=== PATIENT | female | born 1950 | race Caucasian/White ===

== ENCOUNTER → 2016-05-31 | Outpatient (CLI) | payer MEDICARE, BC ==
[~2016-05-31] MED LIST: ASPIRIN 81M81 MG/TA2 PO; BENADRYL25 M2 PO; CEPHALEXIN500 M1 PO; COZAAR 25MG25 MG/TAB PO; HCTZ12.5TAB PO; MULTIVITAMIN FO1 CAP PO; NORCO 325 MG-7.1 TAB PO; PEPCID 20MG TAB20 MG PO; PHENERGAN 25 TA25 MG PO; PREDNISONE20 MG PO; ZYRTEC 10MG10 MG PO
== END ==
LOC: MC.RAD 13:27
DX: Z12.31 Encounter for screening mammogram for malignant neoplasm of breast (principal)

== ENCOUNTER 2016-12-15 19:29 | Emergency (ER) | payer MEDICARE, BC ==
[~2016-12-15] VITALS: Ht 170.2 cm; Wt 79.5 kg
[2016-12-15 19:31] VITALS: BP 161/87; TEMP 100.3
[2016-12-15] MEDS ORDERED: HYDRODIURIL50 MG PO (19:33)
[2016-12-15] MEDS ORDERED: PERCOCET 325 MG1 TA2 PO (20:20)
[2016-12-15] MEDS ORDERED: CLEOCIN HCL300 MG PO (20:20)
[2016-12-15 20:25] VITALS: PULSE 97
== END 2016-12-15 20:26 | disposition home or self-care (01) ==
LOC: COL.ER 19:29
DX: R68.84 Jaw pain (principal); I10 Essential (primary) hypertension; Z98.890 Other specified postprocedural states; Z90.89 Acquired absence of other organs

== ENCOUNTER → 2017-06-20 | Outpatient (CLI) | payer MEDICARE, BC ==
[~2017-06-20] MED LIST changes: +CLEOCIN HCL300 MG PO; +HYDRODIURIL50 MG PO; +PERCOCET 325 MG1 TA2 PO
== END ==
LOC: MC.RAD 10:56
DX: Z12.31 Encounter for screening mammogram for malignant neoplasm of breast (principal); N63.11 Unspecified lump in the right breast, upper outer quadrant

== ENCOUNTER → 2017-06-25 | Outpatient (CLI) | payer MEDICARE, BC | LOC: MC.RAD 06:58 | DX: N60.01 Solitary cyst of right breast (principal) ==

== ENCOUNTER → 2018-06-30 | Outpatient (CLI) | payer MEDICARE, BC | LOC: MC.RAD 11:45 | DX: Z12.31 Encounter for screening mammogram for malignant neoplasm of breast (principal) ==

== ENCOUNTER → 2019-08-10 | Outpatient (CLI) | payer MEDICARE, BC | LOC: MC.RAD 12:24 | DX: Z12.31 Encounter for screening mammogram for malignant neoplasm of breast (principal) ==

== ENCOUNTER → 2020-10-31 | Outpatient (CLI) | payer MEDICARE, BC | LOC: MC.RAD 11:12 | DX: Z12.31 Encounter for screening mammogram for malignant neoplasm of breast (principal) ==

== ENCOUNTER → 2021-05-30 | Outpatient (CLI) | payer MEDICARE, BC | LOC: COL.RAD 12:59 | DX: Z12.2 Encounter for screening for malignant neoplasm of respiratory organs (principal); F17.211 Nicotine dependence, cigarettes, in remission ==

== ENCOUNTER → 2021-11-08 | Outpatient (CLI) | payer MEDICARE, BC | LOC: MC.RAD 14:36 | DX: Z12.31 Encounter for screening mammogram for malignant neoplasm of breast (principal) ==

== ENCOUNTER 2021-12-28 11:15 | Outpatient (RCR) | payer MEDICARE, BC | END 2021-12-31 | disposition home or self-care (01) | LOC: MKS.ESL.PT | DX: M85.851 Other specified disorders of bone density and structure, right thigh (principal); G89.29 Other chronic pain; M25.562 Pain in left knee; M25.561 Pain in right knee ==